=== PATIENT | female | born 1955 | race Caucasian/White ===

== ENCOUNTER 2020-01-12 11:48 | Emergency (ER) | payer MEDICARE, OTHER ==
--- NOTE | 2020-01-12 13:54 | EDM.PDOC ---
ED HPI GENERAL MEDICAL PROBLEM - General Chief Complaint: Respiratory Problem Stated Complaint: SENT BY CLINIC POSSIBLE BLOOD CLOTS Time Seen by Provider: 01/12/20 12:46 Source of Information: Reports: Patient, RN Notes Reviewed - History of Present Illness INITIAL COMMENTS - FREE TEXT/NARRATIVE: 64 yr old female is about 12 days since onset of covid, known positive. States she has been told she can "come off of quarantine but has been quite and more short of breath the past few days. States her sats at home have been at times only in the 70's. [place], muscle aches, diarrhea, fever, chills all better the last 2 days. No diabetic. Did smoke many yrs ago. - Related Data Allergies Allergy/AdvReac Type Severity Reaction Status Date / Time No Known Allergies Allergy Verified 01/12/20 12:26 Home Meds: Home Meds Albuterol Sulfate [Albuterol Sulfate Hfa] 8.5 gm IH Q4HR PRN #1 [email or web address] 01/12/20 [Rx] Levothyroxine 75 mcg PO DAILY 01/12/20 [History] Omeprazole 20 mg PO DAILY 01/12/20 [History] Pravastatin [Pravachol] 20 mg PO DAILY 01/12/20 [History] Past Medical History Gastrointestinal History: Reports: GERD Musculoskeletal History: Reports: Other (See Below) Other Musculoskeletal History: right ankle titanium Endocrine/Metabolic History: Reports: Hypothyroidism - Infectious Disease History Infectious Disease History: Reports: Other (See Below) Other Infectious Disease History: COVID 19 - Past Surgical History GI Surgical History: Reports: Appendectomy Female Surgical History: Reports: Hysterectomy Social & Family History - Tobacco Use Tobacco Use Status *Q: Former Tobacco User Used Tobacco, but Quit: Yes Month/Year Tobacco Last Used: 8 yr - Caffeine Use Caffeine Use: Reports: Coffee - Recreational Drug Use Recreational Drug Use: No ED ROS GENERAL - Review of Systems Review Of Systems: See Below Constitutional: Reports: Fever, Chills HEENT: Reports: Rhinitis. Denies: Throat Pain Respiratory: Reports: Shortness of Breath, Cough Cardiovascular: Denies: Chest Pain Endocrine: Reports: Fatigue GI/Abdominal: Reports: Decreased Appetite. Denies: Abdominal Pain, Nausea, Vomiting Musculoskeletal: Reports: Other (generalized achiness) Skin: Denies: Rash Neurological: Reports: Dizziness, Headache ED EXAM, GENERAL - Physical Exam Exam: See Below General Appearance: Alert, No Apparent Distress Eye Exam: Bilateral Eye: PERRL Neck: Supple Respiratory/Chest: No Respiratory Distress, Lungs Clear, Normal Breath Sounds. No: Rales, Rhonchi, Wheezing Cardiovascular: Regular Rate, Rhythm GI/Abdominal: Soft, Non-Tender Extremities: Normal Inspection. No: Pedal Edema, Leg Pain, Increased Warmth, Redness Neurological: Alert, Oriented, No Motor/Sensory Deficits Skin Exam: Warm, Dry, Normal Color Course - Vital Signs Last Recorded V/S: Last Vital Signs Temp 98.5 F 01/12/20 12:22 Pulse 88 01/12/20 14:10 Resp 20 01/12/20 14:10 BP 110/72 01/12/20 12:22 Pulse Ox 91 L 01/12/20 14:10 - Re-Assessments/Exams Free Text/Narrative Re-Assessment/Exam: 01/13/20 14:13 CXR does show small areas of bilat infiltrate compatable with viral pneumonia. Sats have been OK, in the 91 to 95 % range. She is about day 12 or more, the exptectation is that she should start getting better. Strong return precautions given. Departure - Departure Time of Disposition: 13:45 Disposition: Home, Self-Care 01 Condition: Fair Clinical Impression: Pneumonia due to COVID-19 virus - Discharge Information Prescriptions: Albuterol Sulfate [Albuterol Sulfate Hfa] 8.5 gm IH Q4HR PRN #1 [email or web address] PRN Reason: Wheezing Instructions: COVID-19 Frequently Asked Questions, Community-Acquired Pneumonia, Adult, [id number] Referrals: PCP,Not In Area [Primary Care Provider] - Forms: ED Department Discharge Additional Instructions: Your difficulty breathing is due to the covid infection and mild viral pneumonia that shows on your CXR. Due to the time course of your illness the expectation is that this will now start getting better day by day. Albuterol inhaler, 2 puffs q 4 to 6 hr as needed for difficulty breathing. Tylenol if needed for discomfort. Return to ED for severe difficulty breathing that does not get better with the inhaler. Sepsis Event Note (ED) - Evaluation Sepsis Screening Result: No Definite Risk
--- NOTE | 2020-01-15 10:27 | CR ---
PROCEDURE INFORMATION: Exam: XR Chest, 1 View Exam date and time: 01/12/2020 12:49 PM Age: 64 years old Clinical indication: Dyspnea and other: Day 12 to 14 of covid TECHNIQUE: Imaging protocol: XR of the chest Views: 1 view. COMPARISON: No relevant prior studies available. FINDINGS: Lungs: Diffuse patchy airspace opacities noted throughout the lungs bilaterally. Pleural space: Unremarkable. No pleural effusion. No pneumothorax. Heart/Mediastinum: Unremarkable. No cardiomegaly. 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 The thoracic spine demonstrates mild degenerative changes at multiple levels. IMPRESSION: Diffuse patchy airspace opacities noted throughout the lungs bilaterally. Findings consistent with edema, viral or atypical pneumonia. Other etiologies are not excluded. Thank you for allowing us to participate in the care of your patient. Dictated and Authenticated by: Bill Watkins DO 01/12/2020 2:20 PM Central Time ([place] & [place]) [facility]
== END 2020-01-12 14:17 | disposition home or self-care (01) ==
LOC: JD.ED 11:48
DX: U07.1 COVID-19 (principal); J12.89 Other viral pneumonia; K21.9 Gastro-esophageal reflux disease without esophagitis; E03.9 Hypothyroidism, unspecified; Z87.891 Personal history of nicotine dependence; Z79.899 Other long term (current) drug therapy
CPT/HCPCS: 71045; 71045-26; 99283; 99284-25